=== PATIENT | male | born 1980 | race African-American/Black ===

== ENCOUNTER 2019-01-20 19:07 | Emergency (ER) | payer OTHER ==
[~2019-01-20] VITALS: Ht 188 cm; Wt 93.0 kg
[2019-01-20] MEDS ORDERED: IV NORMAL SALINE 1000ML BAG 1,000 ML IV ONE (19:30)
[2019-01-20] MEDS ORDERED: [UNRECOGNIZED DRUG - REMARK] (19:33)
[2019-01-20 19:36] LABS: BASO % 0 % (0-3); EOS % 0 % (0-3); HEMATOCRIT 38.7 % (39.0-53.0); HEMOGLOBIN 12.4 g/dL (13.0-17.5); LYMPH # 0.7 x10^3/uL (1.0-4.8); LYMPH % 8 % (24-48); MEAN CORPUSCULAR HEMOGLOBIN 27 pg (25-35); MEAN CORPUSCULAR HGB CONC 32 g/dL (31-37); MEAN CORPUSCULAR VOLUME 84 fL (79-100); MONO # 0.4 x10^3/uL (0.0-1.1); MONO % 4 % (0-9); NEUT # 7.1 x10^3uL (1.8-7.7); NEUT % 87 % (31-73); PLATELET COUNT 311 x10^3/uL (140-400); RED BLOOD COUNT 4.62 x10^6/uL (4.30-5.70); RED CELL DISTRIBUTION WIDTH 14.6 % (11.5-14.5); WHITE BLOOD COUNT 8.2 x10^3/uL (4.0-11.0)
[2019-01-20 19:43] LABS: CALCIUM 10.9 mg/dL (8.5-10.1); CREATININE 1.6 mg/dL (0.7-1.3); GFR 49.2; POTASSIUM 3.7 mmol/L (3.5-5.1)
[2019-01-20] MEDS ORDERED: IPRATRPIUM/ALBUTEROL 0.5/2.5MG 3 ML NEBU. NEB ONE (19:45)
[2019-01-20] MEDS ORDERED: DEXAMETHASONE SOD PHOS 20 MG/5 ML VIAL. IV ONE (19:45)
[2019-01-20 19:49] LABS: ALBUMIN 4.3 g/dL (3.4-5.0); ALBUMIN/GLOBULIN RATIO 1.1 (1.0-1.7); MAGNESIUM 2.2 mg/dL (1.8-2.4); TOTAL BILIRUBIN 0.3 mg/dL (0.2-1.0); TOTAL PROTEIN 8.2 g/dL (6.4-8.2)
[2019-01-20 19:59] LABS: % BANDS 2 % (0-9); % LYMPHS 7 % (24-48); % MONOS 4 % (0-10); % SEGS 87 % (35-66)
[2019-01-20 20:00] LABS: PLT ESTIMATE ADEQUATE (ADEQUATE)
[2019-01-20] MEDS ORDERED: DEXAMETHASONE SOD PHOS 4 MG/ML VIAL IV ONE (20:00)
[2019-01-20 20:19] LABS: BILIRUBIN,URINE NEGATIVE (NEG); CLARITY,URINE CLEAR; COLOR,URINE YELLOW; NITRITE,URINE NEGATIVE (NEG); PROTEIN,URINE 30 mg/dL (NEG-TRACE); UROBILINOGEN,URINE 0.2 mg/dL (0.2 mg/dL)
[2019-01-20 20:25] LABS: BACTERIA,URINE 0 /HPF (0-FEW); WBC,URINE OCC /HPF (0-4)
[2019-01-20 20:26] LABS: HYALINE CASTS, URINE MODERATE /HPF; SQUAMOUS EPITHELIAL CELL,UR OCC /LPF
--- NOTE | 2019-01-20 20:27 | PHYS DOC ---
Past Medical History Past Medical History: HIV, Other Past Surgical History: No Surgical History Alcohol Use: Occasionally Drug Use: None Adult General Chief Complaint Chief Complaint: CHEST PAIN HPI HPI Patient is a 38 year old female who presents with chest pain. Patient states he is running around the track this evening when he started to have chest tightness that radiated across his whole chest. Additionally during this time he was also experiencing some lightheadedness and had to sit down. Patient denies ever completely passing out. He is still experiencing this chest tightness however is less and then it previous. He rates it as a 4 out of 10. Palpation or movement does not make the pain worse. Only time has improve the pain. Patient also reports recently starting a testosterone supplement that he received over the Internet. He denies any shortness of breath, hemoptysis, unilateral leg swelling, fever or chills. Review of Systems Review of Systems Constitutional: Denies fever or chills Eyes: Denies eye pain or vision changes. HENT: Denies nasal congestion or sore throat Respiratory: Denies cough or shortness of breath Cardiovascular: Reports chest pain. Denies palpitations GI: Denies abdominal pain, nausea, vomiting : Denies dysuria or hematuria Musculoskeletal: Denies back pain or joint pain Integument: Denies rash or swelling Neurologic: Reports lightheadedness. Denies headache. Complete systems were reviewed and found to be within normal limits, except as documented in this note. Current Medications Current Medications Current Medications Medications (Trade) Dose Ordered Sig/Maria Del Carmen Start Time Stop Time Status Last Admin Dose Admin Albuterol/ Ipratropium (Duoneb) 3 ml 1X ONCE 01/20/19 19:45 01/20/19 19:46 DC 01/20/19 19:45 3 ML Dexamethasone Sodium Phosphate (Decadron) 10 mg 1X ONCE 01/20/19 20:00 01/20/19 20:01 DC 01/20/19 20:07 10 MG Sodium Chloride 1,000 ml @ 1,000 mls/hr 1X ONCE 01/20/19 19:30 01/20/19 20:29 DC 01/20/19 19:41 1,000 MLS/HR Allergies Allergies Allergies Coded Allergies Type Severity Reaction Last Updated Verified No Known Drug Allergies 01/20/19 No Physical Exam Physical Exam Constitutional: Well developed, well nourished, no acute distress, non-toxic appearance HENT: Normocephalic, atraumatic, mucous membranes moist. Eyes: EOMI, no discharge. Neck: Normal range of motion and supple Cardiovascular:Heart rate regular rhythm, no murmur [] Lungs & Thorax: Bilateral breath sounds clear bilaterally, no rhonchi rales or wheezes. Abdomen: Bowel sounds normal, soft, no tenderness. Skin: Warm, dry, no erythema Back: No tenderness, no CVA tenderness. Extremities: No cyanosis, no clubbing, no edema or unilateral leg swelling. Neurologic: Alert and oriented X 3, normal motor function, no focal neurological deficits noted. Psychologic: Affect normal, mood normal. [] Current Patient Data Vital Signs Vital Signs Date Time Temp Pulse Resp B/P (MAP) Pulse Ox O2 Delivery O2 Flow Rate FiO2 01/20/19 22:30 78 140/82 (101) 95 Room Air 01/20/19 19:07 98.9 22 98.9 Lab Values Laboratory Tests Test 01/20/19 19:15 01/20/19 20:10 01/20/19 21:20 White Blood Count 8.2 x10^3/uL (4.0-11.0) Red Blood Count 4.62 x10^6/uL (4.30-5.70) Hemoglobin 12.4 g/dL (13.0-17.5) L Hematocrit 38.7 % (39.0-53.0) L Mean Corpuscular Volume 84 fL (79-100) Mean Corpuscular Hemoglobin 27 pg (25-35) Mean Corpuscular Hemoglobin Concent 32 g/dL (31-37) Red Cell Distribution Width 14.6 % (11.5-14.5) H Platelet Count 311 x10^3/uL (140-400) Neutrophils (%) (Auto) 87 % (31-73) H Lymphocytes (%) (Auto) 8 % (24-48) L Monocytes (%) (Auto) 4 % (0-9) Eosinophils (%) (Auto) 0 % (0-3) Basophils (%) (Auto) 0 % (0-3) Neutrophils # (Auto) 7.1 x10^3uL (1.8-7.7) Lymphocytes # (Auto) 0.7 x10^3/uL (1.0-4.8) L Monocytes # (Auto) 0.4 x10^3/uL (0.0-1.1) Eosinophils # (Auto) 0.0 x10^3/uL (0.0-0.7) Basophils # (Auto) 0.0 x10^3/uL (0.0-0.2) Segmented Neutrophils % 87 % (35-66) H Band Neutrophils % 2 % (0-9) Lymphocytes % 7 % (24-48) L Monocytes % 4 % (0-10) Platelet Estimate Adequate (ADEQUATE) D-Dimer (Cassie) 0.44 ug/mlFEU (0.00-0.50) Sodium Level 139 mmol/L (136-145) Potassium Level 3.7 mmol/L (3.5-5.1) Chloride Level 102 mmol/L (98-107) Carbon Dioxide Level 26 mmol/L (21-32) Anion Gap 11 (6-14) Blood Urea Nitrogen 16 mg/dL (8-26) Creatinine 1.6 mg/dL (0.7-1.3) H Estimated GFR (Cockcroft-Gault) 49.2 BUN/Creatinine Ratio 10 (6-20) Glucose Level 104 mg/dL (70-99) H Calcium Level 10.9 mg/dL (8.5-10.1) H Magnesium Level 2.2 mg/dL (1.8-2.4) Total Bilirubin 0.3 mg/dL (0.2-1.0) Aspartate Amino Transferase (AST) 21 U/L (15-37) Alanine Aminotransferase (ALT) 30 U/L (16-63) Alkaline Phosphatase 42 U/L (46-116) L Troponin I Quantitative < 0.017 ng/mL (0.000-0.055) 0.021 ng/mL (0.000-0.055) DZ-Nas-L-Type Natriuretic Peptide 52 pg/mL (0-124) Total Protein 8.2 g/dL (6.4-8.2) Albumin 4.3 g/dL (3.4-5.0) Albumin/Globulin Ratio 1.1 (1.0-1.7) Lipase 98 U/L (73-393) Urine Collection Type Unknown Urine Color Yellow Urine Clarity Clear Urine pH 6.0 Urine Specific St[place]augh 1.020 Urine Protein 30 mg/dL (NEG-TRACE) Urine Glucose (UA) Negative mg/dL (NEG) Urine Ketones (Stick) Negative mg/dL (NEG) Urine Blood Small (NEG) Urine Nitrite Negative (NEG) Urine Bilirubin Negative (NEG) Urine Urobilinogen Dipstick 0.2 mg/dL (0.2 mg/dL) Urine Leukocyte Esterase Negative (NEG) Urine RBC 1-2 /HPF (0-2) Urine WBC Occ /HPF (0-4) Urine Squamous Epithelial Cells Occ /LPF Urine Bacteria 0 /HPF (0-FEW) Urine Hyaline Casts Moderate /HPF Urine Mucus Mod /LPF Laboratory Tests 01/20/19 19:15 Laboratory Tests 01/20/19 19:15 EKG EKG EKG @ 1910, normal sinus rhythm, rate of 90, no ST elevation or signs of ischemia Radiology/Procedures Radiology/Procedures [] Course & Med Decision Making Course & Med Decision Making 38 year old male presenting to the emergency department with chest pain during exertion. During this episode patient was riding on a track when he started having some chest tightness as well as some lightheadedness. Patient was brought to the emergency department for evaluation. He reports recently starting a testosterone pill that he bought on the Internet. Labs and imaging were obtained and posted to chart. Symptomatic treatment provided with interval improvement. D-dimer was 0.44. Heart score of 2. Initial troponin was >0.017. Second troponin was 0.021. Discussed the increase in troponin with patient who stated that he was feeling better and would like to follow up in the outpatient setting. Strict return precautions were provided to patient. Patient is stable at this time for discharge and should follow up with PCP as well as get initiated with family independence case manager. Dragon Disclaimer Dragon Disclaimer This electronic medical record was generated, in whole or in part, using a voice recognition dictation system. Departure Departure Impression: Primary Impression: Chest pain Additional Impression: Viral bronchitis Disposition: HOME, SELF-CARE Condition: GOOD Referrals: UNKNOWN PCP NAME (PCP) MERLIN ARIAS MD Patient Instructions: Acute Bronchitis, [id number], Chest Pain (Nonspecific), [id number] Scripts Prednisone (PREDNISONE) 20 Mg Tablet 2 TAB PO DAILY, #8 TAB Start this prescription tomorrow, Thursday01/21/19 Prov: CHRISTA ARROYO DO 01/20/19 Albuterol Sulfate (Proair Hfa) 8.5 Gm Hfa.aer.ad 1 PUFF INH PRN Q6HRS PRN for SHORTNESS OF BREATH, #1 INHALER Prov: CHIRSTA ARROYO DO 01/20/19 Problem Qualifiers Primary Impression: Chest pain Chest pain type: unspecified Qualified Codes: R07.9 - Chest pain, unspecified CHRISTA ARROYO DO Jan 20, 2019 20:27
[2019-01-20 22:30] VITALS: BP 140/82
[2019-01-20] MEDS ORDERED: PRED20TA PO (22:52)
[2019-01-20] MEDS ORDERED: ALBU2.5V8 INH (22:52)
--- NOTE | 2019-01-20 23:00 | RAD ---
Two-view chest dated 01/20/2019. No comparison available. CLINICAL INDICATION: Chest pain. Cough. FINDINGS: PA and lateral views obtained. Heart and mediastinal contours are within normal limits. Lungs are clear without focal consolidation. Vascular interstitium within normal limits. No pleural effusion or pneumothorax. IMPRESSION: No acute radiographic abnormality. Electronically signed by: Ash Kuo MD (01/20/2019 10:57 PM) [id number]
--- NOTE | 2019-01-21 06:07 | EKG ---
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 Electronically Signed On 01-26-2019 11:58:35 CDT by Steve Auguste
== END 2019-01-20 23:04 | disposition home or self-care (01) ==
LOC: ER 19:07
DX: J20.8 Acute bronchitis due to other specified organisms (principal); B97.89 Other viral agents as the cause of diseases classified elsewhere; R07.89 Other chest pain; R42 Dizziness and giddiness
CPT/HCPCS: 36415; 71046; 80053; 81001; 83690; 83735; 83880; 84484; 85007; 85025; 85379; 93005; 94640; 96361; 96374; 99285; J1100; J7030; J7620